=== PATIENT | male | born 1960 | race Caucasian/White ===

== ENCOUNTER 2017-01-22 07:06 | Day surgery (SDC) | payer BC ==
[2017-01-22] MEDS ORDERED: BUPIVACAINE 0.5% W/EPI MPF 30 ML VIAL IVP ONE (11:05)
[2017-01-22] MEDS ORDERED: LIDOCAINE 1% W/EPI 1:200,000 MPF 30ML SQ ONE (11:05)
[2017-01-22] MEDS ORDERED: DEXAMETHASONE PRESERVATIVE FREE 10MG/ML VIAL IV ONE (11:05)
[2017-01-22] MEDS ORDERED: FENTANYL PF 100MCG/2ML VIAL IV ONE (16:24)
[2017-01-22] MEDS ORDERED: LIDOCAINE 2% MDV (20MG/ML) 20ML VIAL IV ONE (16:24)
[2017-01-22] MEDS ORDERED: MIDAZOLAM HCL 2MG/2ML VIAL IV ONE (16:24)
[2017-01-22] MEDS ORDERED: PROPOFOL 10 MG/ML VIAL IV ONE (16:24)
--- NOTE | 2017-01-22 16:57 | Operative Note - [place] ---
DATE OF SURGERY: 01/22/17 PREOPERATIVE DIAGNOSIS: CERVICAL SPONDYLOSIS WITHOUT MYELOPATHY, ICD-10 CODE = M47.812. OPERATION: FLUOROSCOPICALLY-GUIDED RADIOFREQUENCY RHIZOTOMY BILATERAL CERVICAL FACETS 4-5, 5-6, AND 6-7. SURGEON: LAVINIA POMPA D.O. ANESTHESIA: LOCAL SEDATION. ANESTHESIA PROVIDER: MARY JO BOWEN CRNA. INDICATION: This patient presents with plate and screw fusion, cervical spine at 6-7 and extensive spondylosis. A facet series 75-80% pain control. Due to the failure of therapy and success of the facet series, he presents for rhizotomy for more long-term relief. PROCEDURE: Intravenous line, vital sign monitoring, IV sedation, prepped, draped, sterile technique. Cervical facet levels in the area of pain identified and marked at 4-5, 5-6, and 6-7 bilateral. Skin infiltrated. A 22-gauge rhizotomy cannula positioned. Stimulation trials conducted. Rhizotomy burn performed. Local with anti-inflammatory into the sites. Topical antibiotics. Sterile dressing applied. We will monitor and evaluate. cc: Dr. Mehul James JOB NUMBER: [id number] MTDD
== END 2017-01-22 09:36 | disposition home or self-care (01) ==
LOC: SUR 07:06
PROVIDERS: ATTEND Pain Medicine Interventional Pain Medicine
DX: M47.812 Spondylosis without myelopathy or radiculopathy, cervical region (principal)
CPT/HCPCS: 64633; 64634 ×2; 01936; J1100; J3010